=== PATIENT | female | born 1990 | race Two or more races ===

== ENCOUNTER 2023-05-26 23:51 | Inpatient (IN) ==
[2023-05-27] MEDS ORDERED: NS 1,000 ML IV 1,000 ML ONE (00:20)
[2023-05-27] MEDS: NS 1,000 ML IV 1,000 ML IV SCH (00:27)
[2023-05-27 00:34] VITALS: BMI 34.5
[2023-05-27 00:50] LABS: BASOPHILS % (AUTO) 0.5 % (0.2-1.0); EOSINOPHILS % (AUTO) 0.4 % (0.9-2.9); HEMATOCRIT 35.2 % (36.0-47.0); HEMOGLOBIN 11.8 g/dL (12.0-16.0); LYMPHOCYTES # (AUTO) 2.5 X10^3/uL (1.3-2.9); LYMPHOCYTES % (AUTO) 31.2 % (21.0-51.0); MEAN CORPUSCULAR HEMOGLOBIN 28.6 pg (27.0-34.0); MEAN CORPUSCULAR HGB CONC 33.5 g/dL (33.0-35.0); MEAN CORPUSCULAR VOLUME 85.4 fL (80.0-100.0); MEAN PLATELET VOLUME 8.3 fL (7.4-11.0); MONOCYTES # (AUTO) 0.7 x10^3/uL (0.3-0.8); MONOCYTES % (AUTO) 8.9 % (0.0-13.0); NEUTROPHILS # (AUTO) 4.8 x10^3/uL (2.2-4.8); PLATELET COUNT 276 X10^3/uL (150.0-450.0); RED BLOOD COUNT 4.12 X10^6/uL (3.5-5.4); WHITE BLOOD COUNT 8.2 X10^3/uL (3.6-10.0)
[2023-05-27 00:58] LABS: ALANINE AMINOTRANSFERASE 24 Units/L (12-78); ALBUMIN 2.4 g/dL (3.4-5.0); ALKALINE PHOSPHATASE 152 Units/L (46-116); ASPARTATE AMINO TRANSFERASE 24 Units/L (15-37); BLOOD UREA NITROGEN 13 mg/dL (7-18); CALCIUM 8.4 mg/dL (8.5-10.1); CARBON DIOXIDE 18.2 mmol/L (21-32); CHLORIDE 106 mmol/L (98-107); COR CA(FOR HYPOALB) 9.7 mg/dL (8.5-10.1); CREATININE 0.76 mg/dL (0.55-1.02); GLUCOSE 86 mg/dL (65-99); POTASSIUM 3.5 mmol/L (3.5-5.1); SODIUM 140 mmol/L (136-145); TOTAL PROTEIN 7.7 g/dL (6.4-8.2); eGFR NON BLACK RACES > 60 (>60)
[2023-05-27] MEDS: PITOCIN ONE ×2 (00:59→09:16)
[2023-05-27] MEDS: OXYTOCIN 20 UNIT/1,000 ML-NS 20 UNIT/1,000 ML PLAST..BAG IV SCH ×2 (00:59→02:56)
[2023-05-27 01:12] LABS: AMNISURE ROM TEST THERE IS A RUPTURE (NO RUPTURE)
[2023-05-27] MEDS ORDERED: BENADRYL INJ 50 MG VIAL IVP PRN (01:12)
[2023-05-27] MEDS ORDERED: TORADOL 30 MG VIAL IVP PRN (01:12)
[2023-05-27] MEDS ORDERED: ZOFRAN INJ 4 MG VIAL IVP PRN (01:12)
[2023-05-27] MEDS ORDERED: MOTRIN TAB 800 MG PO PRN ×2 (01:17→01:25)
[2023-05-27] MEDS: AQUA-MEPHYTON NEONATAL IM ONE (02:00)
[2023-05-27] MEDS: ILOTYCIN OPHTH OINT ONE (02:01)
[2023-05-27] MEDS ORDERED: MILK OF MAGNESIA PO PRN (02:04)
[2023-05-27] MEDS ORDERED: DERMOPLAST PAIN RELIEF SPRAY TOP PRN (02:04)
[2023-05-27] MEDS ORDERED: AMBIEN PO PRN (02:04)
[2023-05-27] MEDS: MOTRIN TAB 800 MG PO PRN (03:09)
[2023-05-27 04:46] LABS: HEMATOCRIT 30.1 % (36.0-47.0); HEMOGLOBIN 10.2 g/dL (12.0-16.0)
[2023-05-27] MEDS: ADACEL or BOOSTRIX TDaP VACCINE IM ONE (06:38)
[2023-05-27] MEDS: PRENATAL PLUS PO SCH (08:23)
[2023-05-27] MEDS: NS 1,000 ML IV 1,000 ML ONE (09:15)
[2023-05-27 14:26] LABS: BILIRUBIN,URINE NEGATIVE (NEGATIVE); BLOOD/HEMOGLOBIN,URINE 5+ (NEGATIVE); GLUCOSE, URINE NEGATIVE (NEGATIVE); KETONES,URINE NEGATIVE (NEGATIVE); LEUKOCYTE ESTERASE ,URINE 2+ (NEGATIVE); NITRITES,URINE NEGATIVE (NEGATIVE); PROTEIN,URINE 3+ (NEGATIVE); UROBILINOGEN,URINE NORMAL (NORMAL)
[2023-05-27 14:35] LABS: APPEARANCE,URINE CLOUDY (CLEAR); COLOR,URINE BROWN (YELLOW)
[2023-05-27 14:36] LABS: BACTERIA,URINE 1+ /HPF (NEGATIVE); RBC,URINE TNTC /HPF (0-3); SQUAMOUS EPITHELIAL CELL,UR RARE /HPF (NEGATIVE)
[2023-05-28 08:39] VITALS: RESP 18
[2023-05-28 08:40] VITALS: BP 125/69; PULSE 78; TEMP 97.9; O2SAT 100
[2023-05-28] MEDS: DEPO-PROVERA CONTRACEPTIVE INJ IM ONE (08:59)
== END 2023-05-28 11:15 | disposition home or self-care (01) | DRG 807 ==
LOC: ER 23:51 → LD 05-27 00:44 → MED/SURG 05-27 02:00
PROVIDERS: ADMIT Specialist; ATTEND Obstetrics & Gynecology Obstetrics
DX: Z37.0 Single live birth; Z3A.40 40 weeks gestation of pregnancy; O80 Encounter for full-term uncomplicated delivery